=== PATIENT | female | born 1955 | race Caucasian/White ===

== ENCOUNTER 2024-02-21 12:02 | Inpatient (IN) | payer BC ==
[~2024-02-21] VITALS: Ht 165.1 cm; Wt 75.7 kg
[2024-02-21] VITALS (7 sets, daily range): BP systolic 99–137; BP diastolic 37–50; TEMP 98; O2SAT 93–97
[2024-02-21] MEDS: IV NS 0.9% 1,000 ML BAG IV ONE (12:23)
[2024-02-21] MEDS ORDERED: FUROSEMIDE 40 MG/4 ML VIAL ONE (12:36)
[2024-02-21] MEDS ORDERED: NTG 50 MG/D5W250 ML BOTTL 250 ML IV ONE (12:36)
[2024-02-21] MEDS: NTG 50 MG/D5W250 ML BOTTL 250 ML IV ONE (13:01)
[2024-02-21] MEDS: FUROSEMIDE 40 MG/4 ML VIAL IV ONE (13:02)
[2024-02-21 13:24] LABS: ALANINE AMINOTRANSFERASE 60 U/L (12-78); ALBUMIN 2.5 g/dL (3.4-5.0); ALKALINE PHOSPHATASE 208 U/L (46-116); ASPARTATE AMINOTRANSFERASE 91 U/L (15-37); BILIRUBIN,DIRECT 2.4 mg/dL (0.0-0.2); BILIRUBIN,TOTAL 3.5 mg/dL (0.2-1.0); CALCIUM, SERUM 8.2 mg/dL (8.5-10.1); CARBON DIOXIDE 18 mmol/L (21-32); CHLORIDE 98 mmol/L (98-107); CREATININE 1.1 mg/dL (0.6-1.3); GLUCOSE 342 mg/dL (74-106); NT-PRO BNP 2649 pg/mL (0-125); POTASSIUM 4.3 mmol/L (3.5-5.1); SODIUM SERUM 132 mmol/L (136-145); TOTAL PROTEIN, SERUM 6.9 g/dL (6.4-8.2); UREA NITROGEN, BLOOD 26 mg/dL (7-18)
[2024-02-21 13:28] LABS: INR 1.2 (0.91-1.10); PARTIAL THROMBOPLASTIN TIME 24.9 SEC (24.3-34.3); PROTHROMBIN TIME 12.6 SECS (9.2-11.1)
[2024-02-21 13:35] LABS: ABG PCO2 20.7 mmHg (32.0-45.0); ABG PH 7.437 (7.350-7.450); ABG PO2 242.7 mmHg (83.0-108.0); ABG TOTAL HEMOGLOBIN 9.3 G/dL (12.0-16.0); COHb 0.3 % (0.5-1.5); MetHb 0.3 % (0.0-1.5); O2Hb 98.4 % (94.0-97.0); SITE, ABG RIGHT RADIAL; VT, ABG 624 mL
[2024-02-21 13:41] LABS: D-DIMER 33.48 mg/L(FEU (0.17-0.50)
[2024-02-21 13:50] LABS: EOSINOPHILS % (AUTO) 2.2 % (0.0-6.0); HEMATOCRIT 28 % (33-45); HEMOGLOBIN 9.8 g/dL (11.5-14.8); LYMPHOCYTES # (AUTO) 1.3 K/uL (0.8-4.8); LYMPHOCYTES % (AUTO) 88.8 % (20.0-44.0); MEAN CORPUSCULAR HEMOGLOBIN 36 PG (26.0-33.0); MEAN CORPUSCULAR HGB CONC 36 g/dl (31.0-36.0); MEAN CORPUSCULAR VOLUME 101 fL (82-100); MONOCYTES % (AUTO) 3.2 % (2.0-12.0); NEUTROPHILS # (AUTO) 0.1 K/uL (1.8-8.9); NEUTROPHILS % (AUTO) 4.8 % (43.0-81.0); RED BLOOD CELL COUNT(AUTO) 2.72 MIL/uL (4.0-5.2); RED CELL DISTRIBUTION WIDTH 17.4 % (11.5-15.0)
[2024-02-21 13:54] LABS: PLATELET COUNT (AUTO) 7 K/uL (150-450); WHITE BLOOD COUNT (AUTO) 1.5 K/uL (4.3-11.0)
[2024-02-21] MEDS ORDERED: MEPERIDINE25 MG SYR 25 MG/ML VIAL ONE (14:39)
[2024-02-21] MEDS ORDERED: MAGNESIUM HYDROXIDE 30 ML UDC PO PRN (15:00)
[2024-02-21] MEDS ORDERED: ZOLPIDEM TARTRATE 5 MG TABLET PO PRN (15:00)
[2024-02-21] MEDS ORDERED: ONDANSETRON HCL/PF 4 MG/2 ML VIAL IVP PRN (15:00)
[2024-02-21] MEDS ORDERED: Z GUARD REMEDY 4 OZ OINT TP PRN (15:00)
[2024-02-21] MEDS ORDERED: MAG HYDROX/AL HYDROX/SIMETH 30 ML UDC PO PRN (15:00)
[2024-02-21] MEDS ORDERED: IOHEXOL-350 100 ML VIAL IV ONE (15:15)
[2024-02-21] MEDS ORDERED: ACYC-108 PO (15:43)
[2024-02-21] MEDS ORDERED: AMLO-213 PO (15:43)
[2024-02-21] MEDS ORDERED: CALC-1239 PO (15:43)
[2024-02-21] MEDS ORDERED: BLOO-668 IN (15:43)
[2024-02-21] MEDS ORDERED: NEXIUM PO (15:43)
[2024-02-21] MEDS ORDERED: SERT100T12 PO (15:43)
[2024-02-21] MEDS ORDERED: METF-440 PO (15:43)
[2024-02-21] MEDS ORDERED: PANT40TA49 PO (15:43)
[2024-02-21] MEDS ORDERED: EMPA25TA PO (15:43)
[2024-02-21] MEDS ORDERED: LEVO500T90 PO (15:43)
[2024-02-21] MEDS ORDERED: DOCU100C36 PO (15:43)
[2024-02-21] MEDS ORDERED: ATOR10TA PO (15:43)
[2024-02-21] MEDS ORDERED: FOLI0.8C PO (15:43)
[2024-02-21] MEDS ORDERED: OLAN5TAB3 PO (15:43)
[2024-02-21] MEDS ORDERED: SULF-10 PO (15:43)
[2024-02-21] MEDS ORDERED: LEVE500T20 PO (15:43)
[2024-02-21] MEDS ORDERED: MORP30TA7 PO (15:43)
[2024-02-21] MEDS ORDERED: ONDA8TAB13 PO (15:43)
[2024-02-21] MEDS ORDERED: POLY17PO4 PO (15:43)
[2024-02-21] MEDS ORDERED: CYAN-51 PO (15:43)
[2024-02-21] MEDS ORDERED: ALLO300T2 PO (15:43)
[2024-02-21] MEDS ORDERED: LEVOFLOXACIN 750 MG /D5W 150ML 150 ML IV SCH (16:30)
[2024-02-21] MEDS: methylPREDNISolone SOD SUCC 125 MG/2ML VIAL IV SCH (16:34)
[2024-02-21] MEDS: LEVOFLOXACIN 250 MG /D5W 50 ML 250 MG in PREMIX 1 EA IV SCH ×3 (17:13→18:14)
[2024-02-21] MEDS: VANCOMYCIN HCL 1.25 GM in IV D5W 250 ML IV ONE (18:58)
[2024-02-21] MEDS ORDERED: CEFEPIME 2 GM in IV D5W 100 ML IV SCH (19:00)
[2024-02-21] MEDS ORDERED: DEXTROSE 50%-WATER 50 ML DISP.SYRIN IV PRN (19:30)
[2024-02-21] MEDS: CEFEPIME 2 GM in IV D5W 100 ML IV SCH (20:51)
[2024-02-21 21:50] LABS: LYMPHOCYTES % (MANUAL) 80 % (16-48); MONOCYTES % (MANUAL) 2 % (0-11.0); NEUTROPHILS % (MANUAL) 18 (42-76); PLATELET ESTIMATE PLATE
[2024-02-21 21:51] LABS: ANISOCYTOSIS 1+
[2024-02-21 21:52] LABS: OVALOCYTES 1+; TEAR DROP CELLS 1+
[2024-02-22] VITALS (29 sets, daily range): BP systolic 107–174; BP diastolic 34–66; TEMP 97.5–97.9; O2SAT 94–100
[2024-02-22] MEDS: BLOOD SUGAR DIAGNOSTIC 1 EACH STRIP IN SCH (00:26)
[2024-02-22] MEDS: INSULIN REGULAR, HUMAN 100 UNIT/ML 3 ML VIAL SQ PRN (00:33)
[2024-02-22] MEDS ORDERED: TRAMADOL HCL 50 MG TABLET PO PRN (04:30)
[2024-02-22] MEDS: MORPHINE SULFATE INJ 2 MG/ML DISP.SYRIN IV PRN (05:00)
[2024-02-22 05:07] LABS: ABG BASE EXCESS -4.3 mmol/L (-2.0-3.0); ABG OXYGEN SATURATION 95.6 % (94.0-98.0); ABG PCO2 28.5 mmHg (32.0-45.0); ABG PH 7.441 (7.350-7.450); ABG PO2 85.9 mmHg (83.0-108.0); ABG TOTAL HEMOGLOBIN 9.9 G/dL (12.0-16.0); COHb 0.3 % (0.5-1.5); MetHb 0.1 % (0.0-1.5); O2Hb 95.2 % (94.0-97.0); SITE, ABG RIGHT RADIAL
[2024-02-22 05:34] LABS: HEMATOCRIT 21 % (33-45); HEMOGLOBIN 7.6 g/dL (11.5-14.8); LYMPHOCYTES # (AUTO) 1.2 K/uL (0.8-4.8); MEAN CORPUSCULAR HEMOGLOBIN 36 PG (26.0-33.0); MEAN CORPUSCULAR HGB CONC 36 g/dl (31.0-36.0); MEAN CORPUSCULAR VOLUME 98 fL (82-100); MONOCYTES % (AUTO) 3.1 % (2.0-12.0); NEUTROPHILS % (AUTO) 1.9 % (43.0-81.0); RED BLOOD CELL COUNT(AUTO) 2.14 MIL/uL (4.0-5.2); RED CELL DISTRIBUTION WIDTH 16.5 % (11.5-15.0)
[2024-02-22 06:16] LABS: CALCIUM, SERUM 7.9 mg/dL (8.5-10.1); CREATININE 0.7 mg/dL (0.6-1.3); MAGNESIUM 2.3 mg/dL (1.8-2.4); PHOSPHORUS 2.2 mg/dL (2.5-4.9); PLATELET COUNT (AUTO) 8 K/uL (150-450); POTASSIUM 3.8 mmol/L (3.5-5.1); WHITE BLOOD COUNT (AUTO) 1.2 K/uL (4.3-11.0)
[2024-02-22] MEDS: VANCOMYCIN 750 MG in IV D5W 250 ML IV SCH ×2 (06:19→15:19)
[2024-02-22] MEDS: FUROSEMIDE 40 MG/4 ML VIAL IV SCH (07:57)
[2024-02-22] MEDS ORDERED: FUROSEMIDE 40 MG/4 ML VIAL IV SCH (09:00)
[2024-02-22 09:41] LABS: BASOPHILS % (MANUAL) 0 % (0.0-2.0); EOSINOPHILS % (MANUAL) 0 % (0-4); LYMPHOCYTES % (MANUAL) 89 % (16-48); MONOCYTES % (MANUAL) 6 % (0-11.0); NEUTROPHILS % (MANUAL) 5 (42-76)
[2024-02-22 09:42] LABS: ANISOCYTOSIS 1+; PLATELET ESTIMATE DECREASED
[2024-02-22 09:55] LABS: THYROID STIMULATING HORMONE 3.78 uIU/mL (0.358-3.74)
[2024-02-22] MEDS: ACETAMINOPHEN 325 MG TABLET PO PRN (12:58)
[2024-02-22] MEDS: K PHOS NEUTRAL 250 MG TABLET PO ONE (15:25)
[2024-02-22] MEDS: TBO-FILGRASTIM 300 MCG/0.5 ML SYRINGE SQ SCH (16:46)
[2024-02-22 19:13] LABS: D-DIMER 12.85 mg/L(FEU (0.17-0.50); INR 1.26 (0.91-1.10); PARTIAL THROMBOPLASTIN TIME 29.5 SEC (24.3-34.3); PROTHROMBIN TIME 13.2 SECS (9.2-11.1)
[2024-02-22 19:38] LABS: RHEUMATOID FACTOR SCREEN NEGATIVE (NEGATIVE)
[2024-02-23] VITALS (27 sets, daily range): BP systolic 98–167; BP diastolic 41–98; TEMP 97.6–98.8; O2SAT 92–100
[2024-02-23] MEDS: diphenhydrAMINE HCL 50 MG/ML VIAL IV ONE (00:48)
[2024-02-23] MEDS: ACETAMINOPHEN 325 MG TABLET PO ONE (00:48)
[2024-02-23] MEDS: diphenhydrAMINE HCL 50 MG/ML VIAL ONE (00:56)
[2024-02-23 05:26] LABS: ALBUMIN 2.3 g/dL (3.4-5.0); BILIRUBIN,TOTAL 2.4 mg/dL (0.2-1.0); CALCIUM, SERUM 7.8 mg/dL (8.5-10.1); CREATININE 0.7 mg/dL (0.6-1.3); MAGNESIUM 2.2 mg/dL (1.8-2.4); PHOSPHORUS 2.7 mg/dL (2.5-4.9); TOTAL PROTEIN, SERUM 6.7 g/dL (6.4-8.2)
[2024-02-23 05:32] LABS: INR 1.3 (0.91-1.10); PARTIAL THROMBOPLASTIN TIME 29.3 SEC (24.3-34.3); PROTHROMBIN TIME 13.5 SECS (9.2-11.1)
[2024-02-23 05:35] LABS: D-DIMER 10.6 mg/L(FEU (0.17-0.50); EOSINOPHILS % (AUTO) 0.3 % (0.0-6.0); HEMATOCRIT 22 % (33-45); HEMOGLOBIN 8.1 g/dL (11.5-14.8); LYMPHOCYTES # (AUTO) 0.3 K/uL (0.8-4.8); LYMPHOCYTES % (AUTO) 90.3 % (20.0-44.0); MEAN CORPUSCULAR HEMOGLOBIN 35 PG (26.0-33.0); MEAN CORPUSCULAR HGB CONC 36 g/dl (31.0-36.0); MEAN CORPUSCULAR VOLUME 98 fL (82-100); MONOCYTES % (AUTO) 3.5 % (2.0-12.0); NEUTROPHILS % (AUTO) 5.9 % (43.0-81.0); RED BLOOD CELL COUNT(AUTO) 2.29 MIL/uL (4.0-5.2); RED CELL DISTRIBUTION WIDTH 16.2 % (11.5-15.0)
[2024-02-23 05:38] LABS: POTASSIUM 2.4 mmol/L (3.5-5.1)
[2024-02-23 05:39] LABS: PLATELET COUNT (AUTO) 12 K/uL (150-450); WHITE BLOOD COUNT (AUTO) 0.3 K/uL (4.3-11.0)
[2024-02-23] MEDS ORDERED: POTASSIUM CHLORIDE 10 MEQ/50 ML PREMIXED IVPB FOR PERIPHERAL LINE IV ONE (06:30)
[2024-02-23] MEDS: POTASSIUM CL. PREMIX PERIPHER. 50 ML IV ONE (06:50)
[2024-02-23] MEDS ORDERED: POTASSIUM CL. PREMIX PERIPHER. 200 ML IV ONE (07:00)
[2024-02-23 08:06] LABS: IMMUNOGLOBULIN A, SERUM 157 mg/dL (87-352); IMMUNOGLOBULIN G, SERUM 756 mg/dL (586-1602)
[2024-02-23] MEDS: POTASSIUM CHLORIDE 20 MEQ TAB.PRT.SR PO SCH (08:32)
[2024-02-23 09:09] LABS: FREE LAMBDA LT CHAIN SERUM 15.2 mg/L (5.7-26.3); KAPPA/LAMBDA RATIO SERUM 0.86 (0.26-1.65)
[2024-02-23] MEDS: VANCOMYCIN 750 MG in IV D5W 250 ML IV SCH (09:26)
[2024-02-23 10:06] LABS: *ANA ANTI-CENTROMERE B AB <0.2 AI (0.0-0.9); *ANA ANTI-DNA(DS) AB, QN <1 IU/mL (0-9); *ANA ANTI-JO-1 <0.2 AI (0.0-0.9); *ANA ANTICHROMATIN ANTIBODY <0.2 AI (0.0-0.9); *ANA RNP ANTIBODIES <0.2 AI (0.0-0.9); *ANA SJOGREN'S ANTI-SS-A <0.2 AI (0.0-0.9); *ANA SJOGREN'S ANTI-SS-B <0.2 AI (0.0-0.9); *ANAANTI-SCLERODERMA-70 AB <0.2 AI (0.0-0.9); *ANASMITH AB <0.2 AI (0.0-0.9); HEPATITIS B SURFACE AB Non Reactive (.)
[2024-02-23] MEDS: LIDOCAINE 5% (PATCH) 1 EA PATCH TP SCH (23:04)
[2024-02-24] VITALS (30 sets, daily range): BP systolic 102–171; BP diastolic 53–121; TEMP 97.3–98.8; O2SAT 93–100
[2024-02-24 05:10] LABS: ALBUMIN 2.2 g/dL (3.4-5.0); BILIRUBIN,TOTAL 3.3 mg/dL (0.2-1.0); CREATININE 0.7 mg/dL (0.6-1.3); MAGNESIUM 1.5 mg/dL (1.8-2.4); PHOSPHORUS 1.7 mg/dL (2.5-4.9); POTASSIUM 3.5 mmol/L (3.5-5.1); TOTAL PROTEIN, SERUM 6.7 g/dL (6.4-8.2)
[2024-02-24] MEDS: Magnesium 1GM/D5W 100ML PREMIX 100 ML IV SCH (09:01)
[2024-02-24 09:22] LABS: HEMATOCRIT 26 % (33-45); HEMOGLOBIN 9.1 g/dL (11.5-14.8); LYMPHOCYTES # (AUTO) 0.2 K/uL (0.8-4.8); LYMPHOCYTES % (AUTO) 93.2 % (20.0-44.0); MEAN CORPUSCULAR HEMOGLOBIN 35 PG (26.0-33.0); MEAN CORPUSCULAR HGB CONC 35 g/dl (31.0-36.0); MEAN CORPUSCULAR VOLUME 100 fL (82-100); MONOCYTES % (AUTO) 4.7 % (2.0-12.0); NEUTROPHILS % (AUTO) 2.1 % (43.0-81.0); RED BLOOD CELL COUNT(AUTO) 2.57 MIL/uL (4.0-5.2); RED CELL DISTRIBUTION WIDTH 16.2 % (11.5-15.0)
[2024-02-24] MEDS: POTASSIUM PHOSPHATE MM 15 MMOL in IV NS 0.9% 250 ML IV SCH (09:27)
[2024-02-24 09:29] LABS: PLATELET COUNT (AUTO) 9 K/uL (150-450); WHITE BLOOD COUNT (AUTO) 0.2 K/uL (4.3-11.0)
[2024-02-24] MEDS ORDERED: DEXTROSE 50%-WATER 50 ML DISP.SYRIN IV PRN (11:30)
[2024-02-24] MEDS: BLOOD SUGAR DIAGNOSTIC 1 EACH STRIP IN SCH (11:44)
[2024-02-24 12:19] LABS: ANISOCYTOSIS 1+
[2024-02-24] MEDS: INSULIN REGULAR, HUMAN 100 UNIT/ML 3 ML VIAL SQ PRN (17:28)
[2024-02-24] MEDS: *INSULIN REGULAR(HUMULIN R)HUM 100 UNIT/ML VIAL SQ PRN (22:36)
[2024-02-25] VITALS (31 sets, daily range): BP systolic 102–159; BP diastolic 43–120; TEMP 97.8–99.9; O2SAT 88–100
[2024-02-25 14:07] LABS: EOSINOPHILS % (AUTO) 1.3 % (0.0-6.0); HEMATOCRIT 29 % (33-45); LYMPHOCYTES # (AUTO) 0.4 K/uL (0.8-4.8); LYMPHOCYTES % (AUTO) 90.7 % (20.0-44.0); MEAN CORPUSCULAR HEMOGLOBIN 35 PG (26.0-33.0); MEAN CORPUSCULAR HGB CONC 35 g/dl (31.0-36.0); MEAN CORPUSCULAR VOLUME 101 fL (82-100); MONOCYTES % (AUTO) 7.2 % (2.0-12.0); NEUTROPHILS % (AUTO) 0.8 % (43.0-81.0); RED BLOOD CELL COUNT(AUTO) 2.83 MIL/uL (4.0-5.2); RED CELL DISTRIBUTION WIDTH 16.7 % (11.5-15.0)
[2024-02-25 14:17] LABS: CALCIUM, SERUM 7.9 mg/dL (8.5-10.1); CREATININE 0.7 mg/dL (0.6-1.3); PLATELET COUNT (AUTO) 9 K/uL (150-450); POTASSIUM 3.3 mmol/L (3.5-5.1); WHITE BLOOD COUNT (AUTO) 0.4 K/uL (4.3-11.0)
[2024-02-25 14:30] LABS: INR 1.27 (0.91-1.10); PROTHROMBIN TIME 13.3 SECS (9.2-11.1)
[2024-02-25 14:36] LABS: D-DIMER 8.64 mg/L(FEU (0.17-0.50)
[2024-02-25] MEDS: LEVOFLOXACIN (250MG) 250 MG TABLET PO SCH (15:38)
[2024-02-25] MEDS: GLUCERNA SHAKE 237 ML CAN PO SCH (18:55)
[2024-02-25 20:10] LABS: *MYCOPLASMA PNEUMONIAE IgG 1074 U/mL (0-99); *MYCOPLASMA PNEUMONIAE IgM <770 U/mL (0-769)
[2024-02-26] VITALS (73 sets, daily range): BP systolic 68–149; BP diastolic 25–89; TEMP 97.7–100.7; O2SAT 81–98
[2024-02-26 01:48] LABS: ABG BASE EXCESS -0.8 mmol/L (-2.0-3.0); ABG OXYGEN SATURATION 89.3 % (94.0-98.0); ABG PCO2 33.4 mmHg (32.0-45.0); ABG PH 7.453 (7.350-7.450); ABG PO2 63.3 mmHg (83.0-108.0); ABG TOTAL HEMOGLOBIN 7.8 G/dL (12.0-16.0); COHb 0.3 % (0.5-1.5); MetHb 0.2 % (0.0-1.5); O2Hb 88.9 % (94.0-97.0); SITE, ABG RIGHT BRACHIAL
[2024-02-26] MEDS: FUROSEMIDE 40 MG/4 ML VIAL IV ONE (02:06)
[2024-02-26 07:10] LABS: *SPE A/G RATIO 0.6 (0.7-1.7); *SPE ALPHA-1-GLOBULIN 0.5 g/dL (0.0-0.4); *SPE BETA GLOBULIN 0.7 g/dL (0.7-1.3); *SPE GLOBULIN, TOTAL 3.2 g/dL (2.2-3.9); *SPE M-SPIKE Not Observed g/dL (Not Observed); *SPE PROTEIN TOTAL 5.2 g/dL (6.0-8.5); *SPEGAMMA GLOBULIN 0.9 g/dL (0.4-1.8)
[2024-02-26] MEDS ORDERED: DEXTROSE 50%-WATER 50 ML DISP.SYRIN IV PRN ×2 (08:00)
[2024-02-26] MEDS ORDERED: INSULIN REGULAR, HUMAN 100 UNIT/ML 3 ML VIAL SQ PRN (08:00)
[2024-02-26 10:04] LABS: CALCIUM, SERUM 7.4 mg/dL (8.5-10.1); CREATININE 0.9 mg/dL (0.6-1.3); LYMPHOCYTES # (AUTO) 0.3 K/uL (0.8-4.8); POTASSIUM 4.1 mmol/L (3.5-5.1)
[2024-02-26 10:08] LABS: EOSINOPHILS % (AUTO) 6.5 % (0.0-6.0); HEMATOCRIT 24 % (33-45); LYMPHOCYTES % (AUTO) 87.3 % (20.0-44.0); MEAN CORPUSCULAR HEMOGLOBIN 35 PG (26.0-33.0); MEAN CORPUSCULAR HGB CONC 34 g/dl (31.0-36.0); MEAN CORPUSCULAR VOLUME 103 fL (82-100); MONOCYTES % (AUTO) 5.6 % (2.0-12.0); NEUTROPHILS % (AUTO) 0.6 % (43.0-81.0); RED BLOOD CELL COUNT(AUTO) 2.29 MIL/uL (4.0-5.2); RED CELL DISTRIBUTION WIDTH 16.8 % (11.5-15.0)
[2024-02-26] MEDS: PROPOFOL 100 ML IV PRN ×2 (10:13→13:55)
[2024-02-26 10:14] LABS: PLATELET COUNT (AUTO) 6 K/uL (150-450); WHITE BLOOD COUNT (AUTO) 0.4 K/uL (4.3-11.0)
[2024-02-26 10:17] LABS: INR 1.95 (0.91-1.10); PARTIAL THROMBOPLASTIN TIME 31.3 SEC (24.3-34.3); PROTHROMBIN TIME 19.8 SECS (9.2-11.1)
[2024-02-26 10:20] LABS: D-DIMER 13.82 mg/L(FEU (0.17-0.50)
[2024-02-26] MEDS ORDERED: ETOMIDATE 2 MG/ML VIAL IV ONE (10:57)
[2024-02-26] MEDS: PHENYLEPHRINE 50 MG in IV NS 0.9% 245 ML IV PRN (11:03)
[2024-02-26] MEDS ORDERED: BLOOD SUGAR DIAGNOSTIC 1 EACH STRIP IN SCH (12:00)
[2024-02-26 12:06] LABS: ABG OXYGEN SATURATION 89.4 % (94.0-98.0); ABG PCO2 29.3 mmHg (32.0-45.0); ABG PH 7.458 (7.350-7.450); ABG PO2 58.9 mmHg (83.0-108.0); ABG TOTAL HEMOGLOBIN 8.6 G/dL (12.0-16.0); COHb 0.3 % (0.5-1.5); MetHb 0.2 % (0.0-1.5); PEEP,BG 10 cm H2O; SITE, ABG RIGHT RADIAL; VT, ABG 500 mL
[2024-02-26] MEDS: BLOOD SUGAR DIAGNOSTIC 1 EACH STRIP IN SCH (12:30)
[2024-02-26] MEDS: INSULIN REGULAR, HUMAN 100 UNIT/ML 3 ML VIAL SQ PRN (12:32)
[2024-02-26] MEDS ORDERED: LEVOFLOXACIN (250MG) 250 MG TABLET GT SCH (12:56)
[2024-02-26] MEDS ORDERED: MAG HYDROX/AL HYDROX/SIMETH 30 ML UDC GT PRN (12:58)
[2024-02-26] MEDS ORDERED: MAGNESIUM HYDROXIDE 30 ML UDC GT PRN (12:59)
[2024-02-26] MEDS ORDERED: PHARMACY TO CHANGE PO MEDS TO GT/NG XX PRN (13:00)
[2024-02-26] MEDS: PHYTONADIONE INJ 10 MG/1 ML AMPUL SQ ONE (13:02)
[2024-02-26 15:07] LABS: FOLIC ACID 8.5 ng/mL (>3.0); IMMUNOGLOBULIN M, SERUM 224 mg/dL (26-217)
[2024-02-26] MEDS: ACETAMINOPHEN 650 MG/20.3 ML UDC GT PRN (15:33)
[2024-02-26] MEDS: NOREPINEPHRINE 8 MG in IV D5W 242 ML IV PRN (16:15)
[2024-02-26] MEDS ORDERED: MICAFUNGIN SODIUM 100 MG in IV NS 0.9% 100 ML IV SCH (17:00)
[2024-02-26 17:40] LABS: LYMPHOCYTES # (AUTO) 0.4 K/uL (0.8-4.8)
[2024-02-26 17:46] LABS: EOSINOPHILS % (AUTO) 2.8 % (0.0-6.0); HEMATOCRIT 22 % (33-45); HEMOGLOBIN 7.8 g/dL (11.5-14.8); LYMPHOCYTES % (AUTO) 93.1 % (20.0-44.0); MEAN CORPUSCULAR HEMOGLOBIN 36 PG (26.0-33.0); MEAN CORPUSCULAR HGB CONC 35 g/dl (31.0-36.0); MEAN CORPUSCULAR VOLUME 102 fL (82-100); MONOCYTES % (AUTO) 3.5 % (2.0-12.0); NEUTROPHILS % (AUTO) 0.6 % (43.0-81.0); RED BLOOD CELL COUNT(AUTO) 2.19 MIL/uL (4.0-5.2); RED CELL DISTRIBUTION WIDTH 16.6 % (11.5-15.0)
[2024-02-26 18:30] LABS: WHITE BLOOD COUNT (AUTO) 0.5 K/uL (4.3-11.0)
[2024-02-26 18:31] LABS: PLATELET COUNT (AUTO) 10 K/uL (150-450)
[2024-02-26 18:42] LABS: ANISOCYTOSIS 1+; OVALOCYTES 1+
[2024-02-26] MEDS: MICAFUNGIN SODIUM 100 MG in IV NS 0.9% 100 ML IV SCH (18:48)
[2024-02-26] MEDS: PHENYLEPHRINE 100 MG in IV NS 0.9% 240 ML IV PRN (19:45)
[2024-02-27] VITALS (15 sets, daily range): BP systolic 37–125; BP diastolic 11–92; TEMP 98.4; O2SAT 82–100
[2024-02-27] MEDS: VASOPRESSIN INJ 20 UNIT/ML VIAL ONE (02:10)
[2024-02-27] MEDS: VASOPRESSIN INJ 40 UNIT in IV NS 0.9% 38 ML IV PRN (02:12)
[2024-02-27] MEDS: NOREPINEPHRINE 32 MG in IV NS 0.9% 218 ML IV PRN (02:30)
[2024-02-27] MEDS: NOREPINEPHRINE 4 MG/4 ML AMPUL IV ONE (02:58)
[2024-02-27] MEDS ORDERED: EPINEPHRINE (1:10,000) SYRINGE 1 MG/10 ML DISP.SYRIN IVP ONE (05:16)
[2024-02-27] MEDS ORDERED: NOREPINEPHRINE 32 MG in IV NS 0.9% 218 ML IV PRN (08:00)
[2024-02-27] MEDS ORDERED: LEVOFLOXACIN (250MG) 250 MG TABLET GT SCH (16:00)
[2024-02-28 21:08] LABS: LEGIONELLA PNEUMOPHILIA AB Equivocal (Non Reactive)
== END 2024-02-27 05:17 | DRG 208 ==
LOC: ER 12:06 → ICU 16:05
PROVIDERS: ADMIT Internal Medicine; ATTEND Internal Medicine
PROC: 5A09357 Assistance with Respiratory Ventilation, Less than 24 Consecutive Hours, Continuous Positive Airway Pressure (ICD-10-PCS; principal; 2024-02-21)
PROC: 30233R1 Transfusion of Nonautologous Platelets into Peripheral Vein, Percutaneous Approach (ICD-10-PCS; 2024-02-21)
PROC: 5A1935Z Respiratory Ventilation, Less than 24 Consecutive Hours (ICD-10-PCS; 2024-02-26)
PROC: 5A09357 Assistance with Respiratory Ventilation, Less than 24 Consecutive Hours, Continuous Positive Airway Pressure (ICD-10-PCS; 2024-02-26)
PROC: 0BH17EZ Insertion of Endotracheal Airway into Trachea, Via Natural or Artificial Opening (ICD-10-PCS; 2024-02-26)
PROC: 5A12012 Performance of Cardiac Output, Single, Manual (ICD-10-PCS; 2024-02-27)
DX: J81.0 Acute pulmonary edema (principal); A41.9 Sepsis, unspecified organism; D61.810 Antineoplastic chemotherapy induced pancytopenia; J96.01 Acute respiratory failure with hypoxia; G93.41 Metabolic encephalopathy; R65.21 Severe sepsis with septic shock; J18.9 Pneumonia, unspecified organism; C79.51 Secondary malignant neoplasm of bone; C50.919 Malignant neoplasm of unspecified site of unspecified female breast; J98.4 Other disorders of lung; Z85.3 Personal history of malignant neoplasm of breast; Z92.3 Personal history of irradiation; Z90.13 Acquired absence of bilateral breasts and nipples; D53.9 Nutritional anemia, unspecified; D70.9 Neutropenia, unspecified; E11.9 Type 2 diabetes mellitus without complications; E78.5 Hyperlipidemia, unspecified; R79.89 Other specified abnormal findings of blood chemistry; R74.01 Elevation of levels of liver transaminase levels; T45.1X5A Adverse effect of antineoplastic and immunosuppressive drugs, initial encounter; Y92.9 Unspecified place or not applicable; Y95 Nosocomial condition
CPT/HCPCS: 36415; 36600; 71045-TC; 80048-TC; 80053-TC; 80061-TC; 80076-TC; 80202-TC; 82607-TC; 82728-TC; 82784; 82803-TC; 82962-TC; 83540-TC; 83735-TC; 83880; 84100-TC; 84155; 84165; 84439-TC; 84443-TC; 84484-TC; 85025-TC; 85027-TC; 85378-TC; 85396; 85730-TC; 86225; 86235; 86334; 86431-TC; 86706; 86713; 86738; 86803; 86850-TC; 87040-TC; 87081-TC; 87340; 92950-TC; 93307-TC; 94002-TC; 94003-TC; 94660; 94799-TC; 99082-TC; A4216; A4223; A6253; A6403; G0378; J0171; J0330; J0692; J1200; J1442; J1815; J1940; J1956; J2175; J2248; J2270; J2919; J3371; J3430; J3475; J3480; J3490; J7030; J7050; J7060; P9034; Q9967